=== PATIENT | female | born 1990 | race Caucasian/White ===

== ENCOUNTER 2022-10-24 19:22 | Emergency (ER) | payer OTHER ==
[~2022-10-24] VITALS: Ht 162.6 cm; Wt 88.0 kg
[2022-10-24 19:37] VITALS: BP 157/94; PULSE 121; RESP 16; TEMP 97.5; O2SAT 100
--- NOTE | 2022-10-24 19:45 | NUR ---
TO LOBBY FOLLOWING TRIAGE
--- NOTE | 2022-10-24 20:02 | NUR ---
pt to bed 03 ambulatory
[2022-10-24] MEDS ORDERED: diphenhydrAMINE 50 MG/ML VIAL IVP ONE (20:25)
[2022-10-24] MEDS ORDERED: DEXAMETHASONE 10 MG/ML VIAL IVP ONE (20:25)
[2022-10-24] MEDS ORDERED: PROCHLORPERAZINE 10 MG/2 ML VIAL IVP ONE (20:25)
[2022-10-24] MEDS ORDERED: KETOROLAC 15 MG/ML VIAL IVP ONE (20:25)
--- NOTE | 2022-10-24 20:35 | NUR ---
PATIENT REPORTS HEADACHE; POSSIBLE MIGRAINE. REPORTS THAT HE VOMITED AT APPROXIMATELY 5PM. PATIENT ALSO REPORTS DIZZINESS PMH: ASTHMA
[2022-10-24 20:47] LABS: BASOPHILS % (AUTO) 0.1 % (0.0-2.0); EOSINOPHILS # (AUTO) 0.1 K/uL (0-0.4); EOSINOPHILS % (AUTO) 1.9 % (0.0-4.0); HEMATOCRIT 45.2 % (36-48); HEMOGLOBIN 15.3 g/dL (12.0-16.0); LYMPHOCYTES # (AUTO) 1.8 K/uL (2.5-16.5); LYMPHOCYTES % (AUTO) 23.1 % (20.5-51.1); MEAN CORPUSCULAR HEMOGLOBIN 29 pg (27-31); MEAN CORPUSCULAR HGB CONC 34 g/dL (33-37); MEAN CORPUSCULAR VOLUME 84.1 fL (80-94); MONOCYTES # (AUTO) 0.5 K/uL (0.8-1.0); NEUTROPHILS # (AUTO) 5.3 K/uL (1.8-7.7); NEUTROPHILS % (AUTO) 67.9 % (42.2-75.2); PLATELET COUNT (AUTO) 273 K/uL (140-450); RED BLOOD CELL COUNT(AUTO) 5.37 MIL/uL (4.20-5.40); RED CELL DISTRIBUTION WIDTH 12.9 % (11.6-13.7); WHITE BLOOD COUNT (AUTO) 7.7 K/uL (4.8-10.8)
[2022-10-24 21:05] LABS: ALBUMIN 3.6 g/dL (3.4-5.0); ANION GAP 10.4 (8-16); CARBON DIOXIDE 28.5 mmol/L (21-32); CREATININE 0.7 mg/dL (0.6-1.3); POTASSIUM 3.9 mmol/L (3.5-5.1); TOTAL BILIRUBIN 0.6 mg/dL (0.0-1.0)
[2022-10-24 22:32] VITALS: BP 157/94; PULSE 121; RESP 16; TEMP 97.5; O2SAT 100
--- NOTE | 2022-10-24 22:32 | NUR ---
Patient discharged with v/s stable. Written and verbal after care instructions given and explained. Patient verbalized understanding. Ambulatory with steady gait. All questions addressed prior to discharge. Advised to follow up with PMD. DX: GENERAL HEADACHE WITHOUT CAUSE
== END 2022-10-24 22:32 | disposition home or self-care (01) ==
LOC: MED 19:22
DX: R51.9 Headache, unspecified (principal); R11.10 Vomiting, unspecified; Z79.899 Other long term (current) drug therapy
CPT/HCPCS: 36415; 70450; 80053; 81025; 83690; 85025; 96374; 96375; 99285; J0780; J1100; J1200; J1885